=== PATIENT | male | born 1970 | race Caucasian/White ===

== ENCOUNTER 2023-07-04 08:28 | Emergency (ER) | payer OTHER ==
[~2023-07-04] VITALS: Ht 182.9 cm; Wt 125.0 kg
[~2023-07-04 08:28] MED LIST: CEFTIN500 MG PO; DOXYCYCLINE 10100 MG PO; PREDNISONE20 MG PO; REVLIMID10 MG
[2023-07-04 08:33] VITALS: BP 125/83; TEMP 98.3
[2023-07-04] MEDS ORDERED: Doxycycline Monohydrate 100 MG CAP PO ONE (09:45)
[2023-07-04] MEDS ORDERED: predniSONE 50 MG TAB PO ONE (09:45)
[2023-07-04] MEDS ORDERED: PREDNISONE50 MG PO (10:05)
[2023-07-04 10:14] VITALS: PULSE 79
== END 2023-07-04 10:14 | disposition home or self-care (01) ==
LOC: COL.ER 08:28
DX: J40 Bronchitis, not specified as acute or chronic (principal); J18.9 Pneumonia, unspecified organism; C90.00 Multiple myeloma not having achieved remission; Z86.16 Personal history of COVID-19; Z79.899 Other long term (current) drug therapy
CPT/HCPCS: J7512